=== PATIENT | male | born 1990 | race African-American/Black ===

== ENCOUNTER 2021-04-13 18:08 | Emergency (ER) | payer OTHER ==
[~2021-04-13] VITALS: Ht 170.2 cm; Wt 74.8 kg
[2021-04-13 18:14] VITALS: BP 138/93
--- NOTE | 2021-04-13 20:42 | NUR ---
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
--- NOTE | 2021-04-13 21:08 | NUR ---
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
== END 2021-04-14 00:12 | disposition home or self-care (01) ==
LOC: ED 23:34
DX: J32.0 Chronic maxillary sinusitis (principal)
CPT/HCPCS: 70486; 99284